=== PATIENT | female | born 2000 | race Two or more races ===

== ENCOUNTER 2024-03-18 11:57 | Emergency (ER) | payer MEDICAID, SELFPAY ==
[2024-03-18 12:06] VITALS: BP 147/87; PULSE 94; RESP 19; TEMP 37.2; O2SAT 96; BMI 41.0
[2024-03-18 12:26] VITALS: PULSE 96; RESP 20; O2SAT 99
[2024-03-18] MEDS: ALBUTEROL/IPRATROPIUM (Duoneb) RT SOL 3 ML NEBU INH (12:26)
--- NOTE | 2024-03-18 12:55 | PD.EDSOB ---
ED SOB =RME/HPI General Chief Complaint: Shortness of Breath/Dyspnea Stated Complaint: SOB since yesterday Time Seen by Provider: 03/18/24 12:07 Arrival date/time: 03/18/24 11:57 23-year-old female presents to the emergency department today stating she approximately 30 weeks patient reports cough, congestion, runny nose and shortness of breath patient reports history of asthma Limitations: no limitations Related Data Home Medications ?Medication ?Instructions ?Recorded ?Confirmed vits no.124-ferrous fum 1 tab PO QDAY 11/24/19 10/08/21 27 mg iron-folic acid 800 mcg tablet ( Vitamin) albuterol sulfate 90 mcg/actuation 2 puff inhalation QID PRN 10/07/21 10/08/21 aerosol inhaler Shortness Of Breath Previous Rx's ?Medication ?Instructions ?Recorded ibuprofen 800 mg tablet 800 mg PO Q6H PRN pain #30 tabs 10/08/21 albuterol sulfate 90 mcg/actuation 2 puff inhalation Q6H PRN 03/18/24 aerosol inhaler (Ventolin HFA) shortness of breath or wheezing #8.5 grams Allergies Allergy/AdvReac Type Severity Reaction Status Date / Time No Known Allergies Allergy Verified 10/08/21 03:23 Review of Systems Review of Systems Systems Reviewed: All systems reviewed, normal except as documented Constitutional Constitutional: Reports system reviewed and no additional complaints, except as documented, Denies fever(s) and Reports headache(s) Eyes Eyes: Reports system reviewed and no additional complaints, except as documented and Denies blurry vision ENT Ears, Nose, Mouth, and Throat: Reports system reviewed and no additional complaints, except as documented, Reports headache(s), Reports nasal congestion and Reports nasal discharge Cardiovascular Cardiovascular: Reports system reviewed and no additional complaints, except as documented, Denies chest pain and Denies dyspnea Respiratory Respiratory: Reports system reviewed and no additional complaints, except as documented, Reports chest congestion, Reports cough, Denies dyspnea and Reports wheezing Gastrointestinal Gastrointestinal: Reports system reviewed and no additional complaints, except as documented and Denies abdominal pain Integumentary/Breasts Skin/Breast: Reports system reviewed and no additional complaints, except as documented and Denies rash Neurologic Neurologic: Reports system reviewed and no additional complaints, except as documented, Reports as per HPI and Reports headache(s) Allergic/Immunologic Allergic/Immunologic: Reports wheezing Past Medical History Past Medical History NEUROLOGIC: Positive Migraine; Negative Neurological Disorders or Seizures CARDIAC: Positive Cardiac Disorders (HYPERTENSION DURING ); Negative Congestive Heart Failure RESPIRATORY: Positive Asthma; Negative Chronic Obstructive Pulmonary Disease (COPD) GASTROINTESTINAL: Positive Gall Bladder Disease (Cholecystitis during ) and Obesity; Negative Gastrointestinal Disorders or Hepatitis GENITOURINARY: Negative Genitourinary Disorders or Renal Disease REPRODUCTIVE: Positive Previous Pregnancies (X2); Negative Endometriosis, Genital Herpes, Gonorrhea, Pelvic Inflammatory Disease, Syphilis or Uterine Prolapse MUSCULOSKELETAL: Negative Musculoskeletal Disorders ENDOCRINE: Negative Endocrine Disorders, Diabetes Mellitus Type 1 or Diabetes Mellitus Type 2 HEMATOLOGIC: Negative Blood Disorders OTHER HISTORY: Positive Hospitalization ([facility], [facility], CHILDBIRTH); Negative Autoimmune Disease, Down Syndrome, Developmental Delay, Shingles, Falls, Blood Transfusions, Blood Transfusion Reaction, Anesthesia Reactions, Organ Transplant, Chemotherapy, Radiation Therapy, Hyperbaric Therapy, MRSA, VRSA, Vancomycin-Resistant Enterococci, Human Immunodeficiency Virus (HIV), Chicken Pox, Measles, Mumps, Rubella (Yi Measles), Pertussis, Clostridium Difficile or Cancer Family History FAMILY HISTORY: Positive Family Respiratory Disorders (BROTHER/MOTHER-ASTHMA), Family Cardiac Disorders (BROTHER-HYPERTENSION), Family Surgery (MOTHER-GALL BLADDER REMOVED, HERNIA REMOVAL) and Family Anesthesia Reaction (MOTHER HAD A HARD TIME WAKING UP FROM ANESTHESIA FOR ABOUT AN HOUR); Negative Family Psychiatric Problems, Family Gastrointestinal Problems or Family Cancer Surgical History SURGICAL: Negative Section or Organ Transplant Social History SMOKING STATUS: Never smoker SUBSTANCE USE: does not use ED Exam General Limitations: Present no limitations General appearance: Present alert and in no apparent distress Head Head exam: Present atraumatic, normocephalic and normal inspection Eye Eye exam: Present normal appearance, PERRL and EOMI; Absent conjunctival injection ENT ENT exam: Present normal exam, normal oropharynx and mucous membranes moist Neck Neck exam: Present normal inspection, full ROM and trachea midline Chest Chest inspection: Present normal inspection and symmetric chest wall rise Respiratory Respiratory exam: Present wheezes; Absent respiratory distress, stridor, accessory muscle use or prolonged expiratory phase Cardiovascular Cardiovascular exam: Present regular rate, normal rhythm and normal heart sounds Abdominal Exam Abdominal exam: Present soft and normal bowel sounds; Absent distention or tenderness Extremities Exam Extremities exam: Present normal inspection and full ROM Back Exam Back exam: Present normal inspection and full ROM Neurological Exam Neurological exam: Present alert, oriented X3 and CN II-XII intact Psychiatric Psychiatric exam: Present normal affect and normal mood Skin Skin exam: Present warm, dry, intact and normal color Course Quality Measures none Orders Category Date Time Status Bedside COVID-19 Antigen Test NOW Care 03/18/24 12:11 Completed Bedside Influenza A&B Antigen Test NOW Care 03/18/24 12:11 Completed Albuterol/Ipratr Rt Laurie [Duoneb Rt Laurie] Med 03/18/24 12:11 Discontinued 3 ml INH X1 ONE Vital Signs Vital signs: Vital Signs Temperature 98.9 F 03/18/24 12:06 Pulse Rate 94 03/18/24 12:06 Respiratory Rate 19 03/18/24 12:06 Blood Pressure 147/87 H 03/18/24 12:06 Pulse Oximetry (%) 96 03/18/24 12:06 Oxygen Delivery Method Room Air 03/18/24 12:06 O2 saturation 96% room air within normal limits Shortness of Breath / Dyspnea MDM Narrative MDM Narrative:: 23-year-old female presents to the emergency department today stating she approximately 30 weeks patient reports cough, congestion, runny nose and shortness of breath patient reports history of asthma On exam patient well-appearing patient does not appear ill or toxic Patient reports no vaginal bleeding or pelvic pain and no vaginal bleeding On exam patient has wheezing right upper lobe and tight throughout her chest Patient checked for flu and COVID both which came back negative Patient given breathing treatment At time of reevaluation lungs are clear to auscultation patient reports he feels better I suspect patient has viral illness exacerbating asthma For any OB complaints patient is directed to go to the OB department or see POSTAL SERVICE WINDOW CLERK as soon as possible Patient discharged home in no distress to follow-up with primary care doctor in the next 24 to 48 hours and for any worsening symptoms to return to the ER immediately Patient data External records reviewed:: [facility] previous records Clinical information provided by:: patient Social determinants that could affect healthcare access:: none Patient has the following chronic illnesses:: Asthma How is presenting disease/condition affected by chronic disease/condition?: caused by Evaluation data The following diagnostics were reviewed and interpreted by me:: lab results Lab and/or radiology exams considered but not ordered:: Labs obtained Interpretation Summary: Reviewed by me Medications / Prescriptions Medications or Prescriptions considered but not ordered:: Given Medication administrations:: Medication Administration History Discontinued Medications Albuterol/Ipratropium (Albuterol/Ipratropium (Duoneb) Rt Laurie 3 Ml Nebu) 3 ml INH X1 ONE Stop: 03/18/24 12:12 Last Admin: 03/18/24 12:26 Dose: 3 ml Documented By: MW Given Consultations Consultation(s) initiated? (list below): No Diagnosis Shortness of Breath Differential Diagnosis: acute exacerbation of chronic obstructive airways disease, community acquired pneumonia, asthma with exacerbation and pulmonary embolism Most likely diagnosis given after review of the tests above:: Asthma exacerbation, URI Admission Indicated Admission indicated?: not indicated Admission Request Was there a request for admission?: No Disposition Plan Disposition Plan: Discharge Discharge Attestation Discharge Attestation: The patient and all family members were given an opportunity to ask questions and understood the discharge instructions. Discharge instructions specifically effects, indications for sooner follow up or return to the emergency department, and the expected course of current diagnosis. Patient condition: Stable Discharge Plan Plan Patient Disposition: HOME (Self Care) Disposition Comment: Stable Prescriptions/Referrals Prescriptions/Med Rec: New albuterol sulfate [Ventolin HFA] 90 mcg/actuation HFA aerosol inhaler 2 puff inhalation Q6H PRN (Reason: shortness of breath or wheezing) Qty: 8.5 0RF No Action albuterol sulfate 90 mcg/actuation Hfa Aerosol Inhaler 2 puff INHALATION QID PRN (Reason: Shortness Of Breath) Vitamin 27 mg iron- 800 mcg Tablet 1 tab PO QDAY ibuprofen 800 mg tablet 800 mg PO Q6H PRN (Reason: pain) Qty: 30 0RF Problem List Clinical Impression: Wheezing, Cough Patient/Caregiver Discharge Instructions Education Materials: ED Cough Chronic Uncertain Cause Adult Additional Instructions: Please follow up with your primary care doctor in the next 24-48hrs for any worsening symptoms return here immediately Print Language: Belarusian Stand Alone Forms: Rosemary Award Info., Patient Portal Info Letter PA/ADVERTISING PRODUCTION MANAGER Supervising Physician PA/KESHAWN Supervising Physician: Dr Patel
== END 2024-03-18 13:00 | disposition home or self-care (01) ==
LOC: SERX 13:08
PROVIDERS: Emergency Provider Emergency Medicine
DX: O26.893 Other specified pregnancy related conditions, third trimester (principal); Z3A.30 30 weeks gestation of pregnancy; R50.9 Fever, unspecified; J45.909 Unspecified asthma, uncomplicated; O99.513 Diseases of the respiratory system complicating pregnancy, third trimester
CPT/HCPCS: 87400; 87811; 94640; 99283; A9270

== ENCOUNTER 2024-05-24 05:12 | Observation (INO) | payer MEDICAID, SELFPAY ==
[2024-05-24 05:27] VITALS: BP 129/72; PULSE 70; RESP 16; RESP 99; TEMP 36.6
[2024-05-24 05:41] VITALS: TEMP 36.6; BMI 44.2
[2024-05-24 07:40] VITALS: BP 131/71; PULSE 72
[2024-05-24 08:45] VITALS: BP 128/78; PULSE 72; RESP 18; TEMP 36.4; O2SAT 98
== END 2024-05-24 09:40 | disposition home or self-care (01) ==
PROVIDERS: Admitting Provider Specialist; Visit Provider Specialist
DX: O47.1 False labor at or after 37 completed weeks of gestation (principal); Z3A.39 39 weeks gestation of pregnancy
CPT/HCPCS: 59025; 59899

== ENCOUNTER 2024-05-24 12:48 | Inpatient (IN) | payer MEDICAID, SELFPAY ==
[2024-05-24] VITALS (126 sets, daily range): BP systolic 0–206; BP diastolic 0–98; PULSE 64–113; RESP 20–98; TEMP 36.6; O2SAT 90–100; BMI 42.9
[2024-05-24] MEDS: RINGERS LACTATED 1000 ML 1,000 ML 100 ML IV ×2 (14:00→16:02)
[2024-05-24 15:19] LABS: Syphilis Nonreactive (Nonreactive)
[2024-05-24 15:55] LABS: Basophils % (Auto) 0 % (0-2.5); Eosinophils # (Auto) 0.1 Thou/mm3 (0.0-0.5); Eosinophils % (Auto) 1 % (0-10); Hematocrit 37.6 % (36.0-46.0); Hemoglobin 12.2 g/dL (12.0-16.0); Immature Granulocytes % (Auto) 1 % (0-0); Immature Granulocytes Auto 0.06 Thou/mm3 (0.00-0.00); Lymphocytes # (Auto) 2.3 Thou/mm3 (1.0-4.8); Lymphocytes % (Auto) 18 % (10-50); Mean Corpuscular HGB Conc 32.4 g/dl (31.0-37.0); Mean Corpuscular Hemoglobin 27.5 pg (25.0-35.0); Mean Corpuscular Volume 85 fL (80-100); Monocytes # (Auto) 0.7 Thou/mm3 (0.0-0.8); Monocytes % (Auto) 5 % (0-12); Neutrophils # (Auto) 9.5 Thou/mm3 (1.8-7.7); Neutrophils % (Auto) 75 % (37-80); Nucleated Red Blood Cell % 0 /100 WBC (0); Platelet Count 300 Thou/mm3 (140-440); RDW Standard Deviation 46.4 fL (36.4-46.3); Red Blood Count 4.43 Miln/mm3 (4.00-5.20); White Blood Count 12.7 Thou/mm3 (3.6-11.0)
[2024-05-24] MEDS: fentaNYL CIT INJ 50 mCg/ML AMP 2ML 100 MCG IV (16:00)
[2024-05-24] MEDS: OXYTOCIN in NS 30 units 30 UNIT/500 ML BAG IV (18:27)
[2024-05-24] MEDS: OXYTOCIN in NS 20 units 20 UNIT/1,000 ML BAG 125 UNIT IV (21:27)
[2024-05-24] MEDS: BENZO/LANO/ALOE (Dermoplast) 60 GM CAN 1 SPRAY TOP (21:27)
--- NOTE | 2024-05-24 21:57 | PD.LDDS ---
DS: Providers Provider Date of admission: 05/24/24 13:53 Primary care physician: Physician No Primary/Family Admitting Provider: Leon Durham MD Attending Provider on Admission: Leon Durham MD Attending Provider on DC: Leon Durham MD Discharging Provider: Leon Durham MD DS: Diagnosis Problem List Completed Was Problem List Reviewed/Reconciled?: Yes Summary/Hosp Course Time Spent with Patient Time attestation: Total time spent providing and/or coordinating discharge services: Exam Vital Signs Temp Pulse Resp BP Pulse Ox 97.8 F 82 20 123/70 100 05/24/24 14:50 05/24/24 21:54 05/24/24 14:50 05/24/24 21:54 05/24/24 21:12 Discharge Plan Plan Patient Disposition: HOME (Self Care) Patient condition on transfer: Stable Prescriptions/Referrals Prescriptions/Med Rec: New ibuprofen 600 mg tablet 600 mg PO Q6H PRN (Reason: pain) Qty: 30 0RF Continued Vitamin 27 mg iron- 800 mcg Tablet 1 tab PO QDAY albuterol sulfate [Ventolin HFA] 90 mcg/actuation HFA aerosol inhaler 2 puff inhalation Q6H PRN (Reason: shortness of breath or wheezing) Qty: 8.5 0RF Referrals: No Primary/Family,Physician [Primary Care Provider] - Patient/Caregiver Discharge Instructions Discharge Activity: activity as tolerated Other Discharge Activity Instructions:: Follow up office 6 weeks. Education Materials: After a Vaginal , Breast Care After , : Caring for Yourself Print Language: Wolof Stand Alone Forms: Rosemary Award Info., Patient Portal Info Letter Discharge Order Discharge Orders: Discharge (Routine); Ordered 05/25/24 Ordered By: Leon Durham Planned Discharge Date 05/26/24
--- NOTE | 2024-05-24 21:58 | PD.LDDELS ---
Data ([place]) Data Hx Section: No : 4 Para: 3 Term: 3 : 0 : 0 Delivery Data ([place]) Labor Data ROM Date: 05/24/24 ROM Time: 20:20 Rupture Type: SROM Amniotic Fluid: Thin Meconium Delivery Data EDC: 05/25/24 EDC calculated by:: LMP/early US confirmation Labor Onset Stage 1 Date: 05/24/24 Labor Onset Stage 1 Time: 16:40 Labor Onset Stage 2 Date: 05/24/24 Labor Onset Stage 2 Time: 20:21 Delivery Date: 05/24/24 Delivery Time: 20:48 Gestational age (weeks): 39 Gestational age (days): 6 Placenta Delivery Date: 05/24/24 Placenta Delivery Time: 21:07 Delivered by: Leon Durham Delivery nurse: Jennifer Flores Other staff at delivery: Nurse Other staff at delivery: Nurse Other staff at delivery: Irais Bedoya Other staff at delivery: Argenis Grullon Delivery Method Delivery: Vaginal Delivery Type: Spontaneous Presentation: Vertex Position: OA Anesthesia Type Primary Anesthesia: Epidural Placenta Placenta Delivery: Spontaneous Placenta Cultures Obtained: No Placenta Sent for Examination: No Cord Sample: Cord Blood Obtained EBL Estimated blood loss (ml): 200 Umbilical Cord Umbilical Vessels: 3 Nuchal Cord: x2 Tightly Additional Procedures None Complications Complications: None Data ([place]) [place] Data Infant Gender: Male Infant Weight Grams: 3250 1 Minute Total: 7 5 Minute Total: 9
[2024-05-24] MEDS: IBUPROFEN TAB 400 MG TABLET 800 MG PO (22:50)
--- NOTE | 2024-05-24 23:45 | PC.NURSE ---
2300: RN at bedside to assist patient up to bed, patient reports right leg dense and minimal sensation. Patient unable to raise right leg off bed on her own. patient made aware we will allow her another 30min to see if sensation improves. patient verbalizes understanding. 2330: RN at bedside to assess sensation to right leg. patient reports feeling more sensation but states her right thigh is numb. patient unable to lift right leg from bed. patient unable to bear weight on right leg. 2335: Patient placed on bedpan but unable to void. pericare done, patient changed into clean gown. Pt. transfered to wheelchair with RN assistance. Pt. transfered to room 468. patient tolerated transfer well. patient instructed to po hydrate and call out to nurses station when she feels urge to void. Patient instructed to not get out of bed on her own. Patient verbalizes understanding and states she will call for nurse when she is ready to try getting up to bathroom.
[2024-05-25] VITALS: BP 115/68; PULSE 80; RESP 18; TEMP 36.8; O2SAT 96
[2024-05-25 04:00] VITALS: BP 117/64; PULSE 80; RESP 18; TEMP 36.4; O2SAT 95
[2024-05-25 06:14] LABS: Basophils % (Auto) 0 % (0-2.5); Eosinophils # (Auto) 0.1 Thou/mm3 (0.0-0.5); Eosinophils % (Auto) 1 % (0-10); Hematocrit 36.2 % (36.0-46.0); Hemoglobin 11.6 g/dL (12.0-16.0); Immature Granulocytes % (Auto) 0 % (0-0); Immature Granulocytes Auto 0.05 Thou/mm3 (0.00-0.00); Lymphocytes # (Auto) 2.4 Thou/mm3 (1.0-4.8); Lymphocytes % (Auto) 21 % (10-50); Mean Corpuscular Hemoglobin 27.4 pg (25.0-35.0); Mean Corpuscular Volume 86 fL (80-100); Monocytes # (Auto) 0.5 Thou/mm3 (0.0-0.8); Monocytes % (Auto) 4 % (0-12); Neutrophils # (Auto) 8.5 Thou/mm3 (1.8-7.7); Neutrophils % (Auto) 73 % (37-80); Nucleated Red Blood Cell % 0 /100 WBC (0); Platelet Count 266 Thou/mm3 (140-440); RDW Standard Deviation 47.7 fL (36.4-46.3); Red Blood Count 4.23 Miln/mm3 (4.00-5.20); White Blood Count 11.7 Thou/mm3 (3.6-11.0)
[2024-05-25 07:35] VITALS: BP 108/62; PULSE 69; RESP 17; TEMP 36.6; O2SAT 95
--- NOTE | 2024-05-25 10:34 | ESPR_ITS ---
RE: EBATRIZINDIANAGARETHLUCYAMMY SHAY : 2000 DATE OF SERVICE: 05/25/2024 S: day #1, the patient denies any problem or complaints. She is voiding. She is ambulating. She is tolerating regular diet. She is passing flatus. She denies any excessive vaginal bleeding. She denies any dizziness or lightheadedness. She denies any chest pain, palpitations, shortness of breath or lower extremity pain. O: Vital Signs: Blood pressure 108/62, heart rate 69, respirations 17, temperature 98.0, and pulse oximetry 95% on room air. Lungs: Clear to auscultation bilaterally. Heart: Regular rate and rhythm. Abdomen: Fundus is firm, nontender. Extremities: Nontender. Laboratory Data: Hemoglobin pre-delivery is 12.2 and post delivery is 11.6. A: day #1, status post spontaneous vaginal delivery. P: Discharge home. Discharge instructions given. Follow up in the office in 6 weeks. DT: 08:22:12 TT: 10:32:00 Ref: [id number] - TID: [id number]
[2024-05-25 12:53] VITALS: BP 123/72; PULSE 66; RESP 16; TEMP 37; O2SAT 95
[2024-05-25 15:06] VITALS: BP 130/78; PULSE 66; RESP 17; TEMP 36.5
[2024-05-25 19:50] VITALS: BP 126/74; PULSE 68; RESP 18; TEMP 36.5; O2SAT 99
== END 2024-05-25 22:10 | disposition home or self-care (01) | DRG 560 ==
LOC: S4SX 21:55 → S4NX 05-25 00:29
PROVIDERS: Admitting Provider Specialist; Visit Provider Specialist
DX: O69.1XX0 Labor and delivery complicated by cord around neck, with compression, not applicable or unspecified (principal); O77.0 Labor and delivery complicated by meconium in amniotic fluid; Z37.0 Single live birth; Z3A.39 39 weeks gestation of pregnancy
CPT/HCPCS: 36415; 59025; 85025; 86780; 86850; 86900; 86901; J2590; J3010; J7120; A9270